=== PATIENT | female | born 1985 | race Two or more races ===

== ENCOUNTER 2023-05-02 14:59 | Outpatient (CLI) | payer OTHER | END 2023-05-02 15:12 | disposition home or self-care (01) | LOC: SONOGRAMA 14:59 | PROVIDERS: ATTEND Specialist | DX: R22.1 Localized swelling, mass and lump, neck (principal); E04.1 Nontoxic single thyroid nodule; Z13.1 Encounter for screening for diabetes mellitus; Z13.220 Encounter for screening for lipoid disorders; E55.9 Vitamin D deficiency, unspecified ==